=== PATIENT | female | born 1995 | race Caucasian/White ===

== ENCOUNTER 2018-10-10 17:54 | Inpatient (IN) | payer OTHER ==
[2018-10-10 18:38] VITALS: BMI 33.6
--- NOTE | 2018-10-10 18:48 | PDOC.LDHP ---
Labor and Delivery H&P Chief complaint: loss of fluid HPI: Patient of Anni Navarro Location: Triage Time: 1845 CC: LOF at 1150 HPI: 22 yo G1 at 39 weeks 2 days (has IOL in 2 days) here with LOF at 1150 and on/off since. No VB, good FM, no issues. Review of Systems: Complete ROS completed and as per HPI Current gestational age (weeks): 39 (2 days) Dating criteria: last menstrual period Grav: 1 Para: 0 Current complications: none Abnormal US findings: No Past Medical History: none Current medications: pre- vitamins Previous surgical history: none Allergies/Adverse Reactions: Allergies Allergy/AdvReac Type Severity Reaction Status Date / Time No Known Allergies Allergy Unverified 10/10/18 18:29 - Physical Exam Vital signs reviewed and normal: yes (BP was 137/80 afebrile pulse 91 99% RA) General: NAD Heart: RRR Lungs: CTAB Abdomen: gravid Extremeties: no edema FHT: category 1 [facility] contractions every: rare - Assessment Threatened labor at full term, possible ROM. GBS neg - Plan Plan: observation in L&D (1. send 2. I will perform SSE 3. monitors for now)
--- NOTE | 2018-10-10 19:02 | PDOC.EVN ---
Event Note - Event Note Event Note: SSE: Grossly ruptured, clear fluid. sent as lab confirmation and record. Exam by me: . Will admit to L&D for cytotec
[2018-10-10] MEDS ORDERED: HYDROcodone/Acetaminophen 5/325 mg Tablet PO PRN (19:03)
[2018-10-10] MEDS ORDERED: Promethazine HCl 25 MG/ML VIAL IM PRN (19:03)
[2018-10-10] MEDS ORDERED: Ondansetron PF 4 MG/2 ML Vial IVP PRN (19:03)
[2018-10-10] MEDS ORDERED: NS / Oxytocin 40 units/1000ml 1,000 ML IV PRN (19:03)
[2018-10-10] MEDS ORDERED: Lidocaine 1% (PF) 30 ML VIAL SC PRN (19:03)
[2018-10-10] MEDS ORDERED: Ibuprofen 800 MG TAB PO PRN (19:03)
[2018-10-10 19:09] LABS: Amnisure Test RUPTURE DETECTED (No Rupture)
[2018-10-10 19:10] LABS: Amnisure Internal Control QC ACCEPTABLE (ACCEPTABLE)
[2018-10-10] MEDS ORDERED: hydrOXYzine 25 MG TAB PO PRN (19:30)
[2018-10-10] MEDS: Lactated Ringer's 1,000 ML IV SCH (20:11)
[2018-10-10 21:03] LABS: Hemoglobin 9.3 g/dL (12.0-16.0); Mean Corpuscular Hemoglobin 25.3 pg (27.0-31.0); Mean Corpuscular Volume 72.2 fL (78.0-98.0); Mean Platelet Volume 10.7 fL (7.4-10.4); Platelet Count 209 thou/uL (130-400); RBC Distribution Width 15.4 % (11.5-14.5); Red Blood Cell (RBC) Count 3.67 mill/uL (4.20-5.40); White Blood Cell (WBC) Count 10.4 thou/uL (4.8-10.8)
[2018-10-10 21:30] LABS: Syphilis Antibody Nonreactive (Nonreactive); Syphilis Antibody Index 0.02 S/CO (<1.00 Non-Reactive)
[2018-10-10] MEDS: Misoprostol 100 MCG TAB VAG SCH (21:34)
[2018-10-10 23:06] LABS: HBSAg Index 0.26 S/CO (0-0.99); HIV (1/2) Antibody/Antigen Non-Reactive (NonReactive); HIV 1/2 INDEX 0.08 S/CO (<1.00); Hep B Surf Ag Non-Reactive S/CO (NonReactive)
[2018-10-11] MEDS: Misoprostol 100 MCG TAB VAG SCH ×4 (02:16→11:17)
[2018-10-11] MEDS: Butorphanol Tartrate 1 MG/ML VIAL SLOW IVP PRN ×4 (02:25→11:10)
[2018-10-11] MEDS ORDERED: NS w/ Oxytocin 10 units 500 ML ONE (07:42)
[2018-10-11] MEDS ORDERED: NS w/ Oxytocin 10 units 500 ML IV SCH (07:45)
--- NOTE | 2018-10-11 07:50 | PDOC.LDPN ---
Labor & Delivery Progress Note - Subjective Subjective: painful contractions - Objective Vital signs reviewed and normal: yes General: NAD Uterine fundus: non tender Dilation: 3 Effacement: 90% Station: -1 FHT: category 1 (120s, mod jose cruz, +accels, no decels ) [place] contractions every: q5-7 min - Assessment (1) SROM (spontaneous rupture of membranes) Code(s): [id number] - Current Visit: Yes Status: Acute (2) 39 weeks gestation of Code(s): Z3A.39 - 39 WEEKS GESTATION OF Current Visit: Yes Status : Acute (3) PUPP (pruritic urticarial papules and plaques of ) Code(s): O26.86 - PRURITIC URTICARIAL PAPULES AND PLAQUES OF (PUPPP) Current Visit: Yes Status: Acute Plan: continue plan of care, pitocin for augmentation -: s/p cytotec Start pitocin as no change with observation requested. Reviewed increased risk with prolonged ROM.
[2018-10-11] MEDS: Dextrose 5%-Lactated Ringers 1,000 ML IV SCH (09:09)
--- NOTE | 2018-10-11 12:27 | PDOC.LDPN ---
Labor & Delivery Progress Note - Subjective Subjective: painful contractions - Objective Vital signs reviewed and normal: yes General: NAD Uterine fundus: non tender Dilation: 5 Effacement: 100% Station: 0 FHT: category 1 (120s, mod jose cruz, +accels, no decels ) [place] contractions every: q2-4 min AROM: clear fluid (of redundant membranes) - Assessment (1) SROM (spontaneous rupture of membranes) Code(s): [id number] - Current Visit: Yes Status: Acute (2) 39 weeks gestation of Code(s): Z3A.39 - 39 WEEKS GESTATION OF Current Visit: Yes Status : Acute (3) PUPP (pruritic urticarial papules and plaques of ) Code(s): O26.86 - PRURITIC URTICARIAL PAPULES AND PLAQUES OF (PUPPP) Current Visit: Yes Status: Acute Plan: continue plan of care, labor augmentation
[2018-10-11] MEDS ORDERED: Fentanyl 4 mcg/Bup 0.1% Cadd 100 ML ONE ×2 (12:39→17:54)
[2018-10-11] MEDS ORDERED: Ondansetron PF 4 MG/2 ML Vial IVP PRN (13:03)
[2018-10-11] MEDS ORDERED: diphenhydrAMINE 50 MG/ML VIAL IVP PRN (13:03)
[2018-10-11] MEDS ORDERED: Naloxone HCl 0.4 mg/ml Vial IVP PRN ×2 (13:03)
[2018-10-11] MEDS ORDERED: Promethazine HCl 25 MG/ML VIAL IM PRN (13:03)
[2018-10-11] MEDS ORDERED: ePHEDrine/0.9% NaCl/PF SYRINGE 50 mg/10 ml SLOW IVP PRN (13:03)
[2018-10-11] MEDS ORDERED: Lactated Ringer's 500 ML IV PRN (13:03)
[2018-10-11] MEDS ORDERED: Fentanyl 4 mcg/Bupivacaine 0.1% Cassette 100 ML EPIDURAL SCH (13:15)
[2018-10-11] MEDS ORDERED: Communication Order-Pharmacy FS SCH (13:15)
[2018-10-11] MEDS: Lactated Ringer's 1,000 ML IV SCH (13:18)
[2018-10-11] MEDS: Acetaminophen 325 MG TAB PO PRN (18:38)
[2018-10-11] MEDS ORDERED: Bicitra 30 ML UDCUP ONE (18:46)
[2018-10-11] MEDS: Ampicillin 2 GM in Sodium Chloride 0.9% 100 ML IVPB SCH (18:50)
[2018-10-11] MEDS ORDERED: Carboprost 250 MCG/ML AMP ONE ×2 (20:54→22:53)
[2018-10-11] MEDS ORDERED: Methylergonovine 0.2 MG/ML VIAL ONE (20:55)
[2018-10-11] MEDS ORDERED: Misoprostol 200 MCG TAB ONE (20:55)
[2018-10-11] MEDS ORDERED: Lidocaine 1% (PF) 30 ML VIAL ONE (20:56)
[2018-10-11] MEDS ORDERED: Butorphanol Tartrate 1 MG/ML VIAL ONE ×2 (22:52)
--- NOTE | 2018-10-11 23:28 | PDOC.OPDEL ---
OB Operative/Delivery Note Delivery Dr/Surgeon: Janae Glover DO Pre-Delivery Diagnosis: ruptured membrane Procedure/Post Delivery Dx: spontaneous vaginal delivery Weeks gestation: 39 Anesthesia: epidural - Findings A Sex: male - 1 min: 9 - 5 min: 9 - Additional Findings/Plan Placenta delivered: spontaneous Repaired Obstetrical Laceration: other (2nd degree and right labial lacerations repaired) Estimated blood loss: QBL 1902 cc; clinical EBL 1500 cc Compilations/Other Findings: in FÉLIX position. Normal appearing placenta. PPH due to uterine atony likely related to chorioamnionitis and prolonged labor Methergine 0.2 mg IM, Hemabate 0.25 mg IM and cytotec 1000 mcg MI given with resolution STAT CBC, coags and fibrinogen ordered, still pending. 1 PRBC ordered at this time, will give additional units if needed. Currently no symptomatic. Continue abx amp and gent post Post delivery plan: routine recovery
[2018-10-11 23:32] LABS: Hemoglobin 7.7 g/dL (12.0-16.0); Mean Corpuscular HGB CONC 31.8 g/dL (32.0-36.0); Mean Corpuscular Hemoglobin 23.4 pg (27.0-31.0); Mean Corpuscular Volume 73.5 fL (78.0-98.0); Mean Platelet Volume 10.3 fL (7.4-10.4); Platelet Count 181 thou/uL (130-400); RBC Distribution Width 15.5 % (11.5-14.5); Red Blood Cell (RBC) Count 3.29 mill/uL (4.20-5.40); White Blood Cell (WBC) Count 16.3 thou/uL (4.8-10.8)
[2018-10-11 23:39] LABS: INR-International Normal Ratio 1.1; PTT 27.3 SEC (22.9-36.1)
[2018-10-12] MEDS: Lactated Ringer's 1,000 ML IV SCH ×2 (00:40→08:38)
[2018-10-12] MEDS: Ampicillin 2 GM in Sodium Chloride 0.9% 100 ML IVPB SCH ×4 (02:30→21:06)
[2018-10-12] MEDS ORDERED: Methylergonovine 0.2 MG/ML VIAL IM PRN (04:00)
[2018-10-12] MEDS ORDERED: Benzocaine-Menthol 82.5 ML CAN TOP PRN (04:00)
[2018-10-12] MEDS ORDERED: Milk Of Magnesia 30 ML UDCUP PO PRN (04:00)
[2018-10-12] MEDS ORDERED: Bisacodyl 10 MG SUPP PR PRN (04:00)
[2018-10-12] MEDS ORDERED: NS / Oxytocin 40 units/1000ml 1,000 ML IV SCH (04:00)
[2018-10-12] MEDS ORDERED: HYDROcodone/Acetaminophen 5/325 mg Tablet PO PRN (04:00)
[2018-10-12] MEDS: Ibuprofen 800 MG TAB PO SCH ×3 (06:31→21:06)
[2018-10-12 06:32] LABS: Hemoglobin 8.7 g/dL (12.0-16.0); Mean Corpuscular Hemoglobin 24.3 pg (27.0-31.0); Mean Corpuscular Volume 75.7 fL (78.0-98.0); Mean Platelet Volume 10.7 fL (7.4-10.4); Platelet Count 192 thou/uL (130-400); Red Blood Cell (RBC) Count 3.57 mill/uL (4.20-5.40); White Blood Cell (WBC) Count 22.6 thou/uL (4.8-10.8)
[2018-10-12 06:52] LABS: Band 13 % (5-11); Lymphocytes 11 % (21-51); MDiff Complete? YES; Monocytes 1 % (0-10); Neutrophil 75 % (42-75)
[2018-10-12] MEDS: Gentamicin Sulfate 330 MG in Sodium Chloride 0.9% 100 ML IVPB SCH ×2 (07:37→19:50)
[2018-10-12] MEDS: Acetaminophen 325 MG TAB PO PRN (08:21)
[2018-10-12] MEDS: Ferrous Sulfate 325 MG TAB PO SCH ×2 (08:21→16:54)
[2018-10-12] MEDS: Prenatal Vitamin 1 TAB PO SCH (08:22)
[2018-10-12] MEDS: Docusate Calcium (SURFAK) 240 MG CAP PO SCH ×2 (08:22→21:06)
--- NOTE | 2018-10-12 08:27 | PDOC.PP ---
Post Progress Note Post Day #: 1 Subjective: Pt reports minimal lochia and pain overnight. Voiding. She has had minimal ambulation. s/p 1 unit PRBC. Reports mild fever this AM. Plans to pump. PO intake tolerated: yes Flatus: yes Ambulation: yes Vital Signs (12 hours) Temp Pulse Resp BP Pulse Ox 10/12/18 08:25 98.6 F 86 20 124/59 L 98 10/12/18 05:50 100.4 F H 105 H 18 153/68 H Weight Weight 190 lb - Physical Examination General: NAD Cardiovascular: RRR Respiratory: non-labored breathing Abdominal: no distention, appropriately TTP Fundus firm & at: below umbilicus Extremities: negative homans (B) Neurological: no gross focal deficits Psychiatric: A&Ox3, normal affect Result Diagrams: 10/12/18 05:49 Additional Labs: Post Labs Blood Type B POSITIVE 10/10/18 21:10 Hep Bs Antigen Non-Reactive S/CO (NonReactive) 10/10/18 20:43 (1) SROM (spontaneous rupture of membranes) Code(s): [id number] - Status: Resolved (2) 39 weeks gestation of Code(s): Z3A.39 - 39 WEEKS GESTATION OF Status: Resolved (3) PUPP (pruritic urticarial papules and plaques of ) Code(s): O26.86 - PRURITIC URTICARIAL PAPULES AND PLAQUES OF (PUPPP) Status: Resolved (4) Chorioamnionitis Code(s): O41.1290 - CHORIOAMNIONITIS, UNSP TRIMESTER, NOT APPLICABLE OR UNSP Status: Acute (5) hemorrhage Code(s): O72.1 - OTHER IMMEDIATE HEMORRHAGE Status: Acute (6) Vaginal delivery Code(s): O80 - ENCOUNTER FOR FULL-TERM UNCOMPLICATED DELIVERY Status: Acute - Assessment/Plan PPD1 Pt febrile this AM and slightly tachycardic. BP mild range. s/p transfusion 1 unit PRBC. Monitor PP lochia. Continue amp/gent and add clinda today for additional coverage. Continue until clinical improvement. Continue PP care, plan for d/c in 2-3 days.
[2018-10-12] MEDS: Dextrose 5%-Lactated Ringers 1,000 ML IV SCH ×2 (08:36→08:37)
[2018-10-12] MEDS: Clindamycin/D5W 900 MG in Premix Bag 1 BAG IVPB SCH ×2 (09:53→16:55)
[2018-10-12] MEDS ORDERED: Sodium Chloride 0.9% 10 ML ONE (11:17)
[2018-10-13] MEDS: Clindamycin/D5W 900 MG in Premix Bag 1 BAG IVPB SCH (00:16)
[2018-10-13] MEDS: Ampicillin 2 GM in Sodium Chloride 0.9% 100 ML IVPB SCH ×2 (01:04→08:07)
[2018-10-13] MEDS: Ibuprofen 800 MG TAB PO SCH ×3 (05:39→14:58)
[2018-10-13 06:33] LABS: #Basophils 0.1 thou/uL (0.0-0.2); #Eosinphils 0.3 thou/uL (0.0-0.7); #Lymphocytes 3.1 thou/uL (1.20-3.40); #Monocytes 1.1 thou/uL (0.11-0.59); #Neutrophils 7.8 thou/uL (1.40-6.50); %Basophils 0.6 % (0.0-1.0); %Eosinophils 2.6 % (0.0-10.0); %Lymphocytes 24.9 % (21.0-51.0); %Monocytes 8.6 % (0.0-10.0); %Neutrophils 63.3 % (42.0-75.0); Hemoglobin 6.7 g/dL (12.0-16.0); Mean Corpuscular HGB CONC 32.4 g/dL (32.0-36.0); Mean Corpuscular Hemoglobin 24.7 pg (27.0-31.0); Mean Corpuscular Volume 76.2 fL (78.0-98.0); Mean Platelet Volume 9.8 fL (7.4-10.4); Platelet Count 167 thou/uL (130-400); White Blood Cell (WBC) Count 12.3 thou/uL (4.8-10.8)
[2018-10-13] MEDS: Ferrous Sulfate 325 MG TAB PO SCH (08:07)
[2018-10-13] MEDS: Prenatal Vitamin 1 TAB PO SCH (08:07)
[2018-10-13] MEDS: Docusate Calcium (SURFAK) 240 MG CAP PO SCH (08:07)
--- NOTE | 2018-10-13 08:51 | PDOC.PP ---
Post Progress Note Post Day #: 2 Subjective: Afebrile > 24 hrs. Denies any pain or tenderness. Denies dizziness with ambulation in room. Minimal lochia, weighed pads yesterday. Only one small quarter sized clot yesterday. No SOB/palpitations. PO intake tolerated: yes Flatus: yes Ambulation: yes Vital Signs (12 hours) Temp Pulse Resp BP Pulse Ox 10/13/18 08:03 98.0 F 77 20 108/53 L 99 10/13/18 05:51 97.6 F 10/13/18 00:10 98.3 F 81 16 116/57 L Weight Weight 190 lb - Physical Examination General: NAD Cardiovascular: RRR Respiratory: non-labored breathing Abdominal: no distention, appropriately TTP Fundus firm & at: below umbilicus Extremities: negative homans (B) Neurological: no gross focal deficits Psychiatric: A&Ox3, normal affect Result Diagrams: 10/13/18 06:17 Additional Labs: Post Labs Blood Type B POSITIVE 10/10/18 21:10 Hep Bs Antigen Non-Reactive S/CO (NonReactive) 10/10/18 20:43 (1) SROM (spontaneous rupture of membranes) Code(s): [id number] - Status: Resolved (2) 39 weeks gestation of Code(s): Z3A.39 - 39 WEEKS GESTATION OF Status: Resolved (3) PUPP (pruritic urticarial papules and plaques of ) Code(s): O26.86 - PRURITIC URTICARIAL PAPULES AND PLAQUES OF (PUPPP) Status: Resolved (4) Chorioamnionitis Code(s): O41.1290 - CHORIOAMNIONITIS, UNSP TRIMESTER, NOT APPLICABLE OR UNSP Status: Resolved (5) hemorrhage Code(s): O72.1 - OTHER IMMEDIATE HEMORRHAGE Status: Resolved (6) Vaginal delivery Code(s): O80 - ENCOUNTER FOR FULL-TERM UNCOMPLICATED DELIVERY Status: Acute (7) Anemia Code(s): D64.9 - ANEMIA, UNSPECIFIED Status: Acute Qualifiers: Other causes of anemia: acute posthemorrhagic - Assessment/Plan PPD2 VSSAF D/C antibiotics. Noted Hbg 6.7 this AM, likely accurate, suspect that hbg 8.7 was falsely elevated yesterday due to proximity near transfusion. Repeat CBC at 10 am. Currently asymptomatic. Recommended increased ambulation today to assess if sx. If she has anemia sx recommend 1 additional unit. Continue to monitor today and plan for d/c this evening vs tomorrow AM depending on clinical course.
[2018-10-13 10:14] LABS: #Basophils 0.1 thou/uL (0.0-0.2); #Eosinphils 0.5 thou/uL (0.0-0.7); #Lymphocytes 2.6 thou/uL (1.20-3.40); #Monocytes 0.8 thou/uL (0.11-0.59); #Neutrophils 8.9 thou/uL (1.40-6.50); %Basophils 0.4 % (0.0-1.0); %Eosinophils 3.6 % (0.0-10.0); %Lymphocytes 20.3 % (21.0-51.0); %Monocytes 6.5 % (0.0-10.0); %Neutrophils 69.2 % (42.0-75.0); Hemoglobin 7.8 g/dL (12.0-16.0); Mean Corpuscular HGB CONC 32.7 g/dL (32.0-36.0); Mean Corpuscular Hemoglobin 24.6 pg (27.0-31.0); Mean Corpuscular Volume 75.2 fL (78.0-98.0); Mean Platelet Volume 10.1 fL (7.4-10.4); Platelet Count 216 thou/uL (130-400); RBC Distribution Width 16.3 % (11.5-14.5); Red Blood Cell (RBC) Count 3.17 mill/uL (4.20-5.40); White Blood Cell (WBC) Count 12.8 thou/uL (4.8-10.8)
[2018-10-13 11:28] VITALS: BP 127/65; TEMP 98.3
--- NOTE | 2018-10-13 16:55 | PDOC.EVN ---
Event Note - Event Note Event Note: Hbg 7.6. Pt asymptomatic with ambulation today. Afebrile and desires d/c home. D /C home today with f/u in 2 weeks.
== END 2018-10-13 18:45 | disposition home or self-care (01) | DRG 805 ==
LOC: L&D/OP 17:54 → L&D 19:24 → 3SW 10-12 05:46
PROVIDERS: ADMIT Obstetrics & Gynecology; ATTEND Obstetrics & Gynecology
PROC: 10E0XZZ Delivery of Products of Conception, External Approach (ICD-10-PCS; principal; 2018-10-11)
PROC: 0KQM0ZZ Repair Perineum Muscle, Open Approach (ICD-10-PCS; 2018-10-11)
DX: O42.90 Premature rupture of membranes, unspecified as to length of time between rupture and onset of labor, unspecified weeks of gestation (principal); O41.1230 Chorioamnionitis, third trimester, not applicable or unspecified; Z37.0 Single live birth; O72.1 Other immediate postpartum hemorrhage; D62 Acute posthemorrhagic anemia; Z3A.39 39 weeks gestation of pregnancy; O26.86 Pruritic urticarial papules and plaques of pregnancy (PUPPP); O70.1 Second degree perineal laceration during delivery; O90.81 Anemia of the puerperium
CPT/HCPCS: 36415; 36430; 51702; 84112; 85025; 85027; 85384; 85610; 85730; 86780; 86850; 86900; 86901; 87340; 87389; 99285; J0290; J0595; J1580; J2001; J2210; J2590; J3490; P9016